=== PATIENT | female | born 2000 | race Caucasian/White ===

== ENCOUNTER 2021-04-11 14:42 | Emergency (ER) | payer OTHER ==
[~2021-04-11] VITALS: Ht 172.7 cm; Wt 68.2 kg
[2021-04-11 15:13] VITALS: TEMP 97.7
[2021-04-11] MEDS ORDERED: BIRTH CONTROL PO (16:51)
[2021-04-11] MEDS ORDERED: ZYRTEC 10MG10 MG PO (16:51)
[2021-04-11 17:28] VITALS: BP 128/79; PULSE 79
== END 2021-04-11 17:30 | disposition home or self-care (01) ==
LOC: COL.ER 14:42
DX: S61.250A Open bite of right index finger without damage to nail, initial encounter (principal); Z29.14 Encounter for prophylactic rabies immune globulin; W55.81XA Bitten by other mammals, initial encounter; Y99.0 Civilian activity done for income or pay